=== PATIENT | male | born 1990 | race Caucasian/White ===

== ENCOUNTER 2018-01-11 15:53 | Inpatient (IN) | payer MEDICAID ==
[~2018-01-11] VITALS: Ht 177.8 cm; Wt 77.5 kg
[~2018-01-11 15:53] MED LIST: BENZ1TAB10 PO; FLUO-191 PO
[2018-01-11] MEDS ORDERED: ZOLPIDEM TARTRATE 10 MG TABLET PO PRN (17:30)
[2018-01-11] MEDS ORDERED: PNEUMOCOCCAL VACCINE POLYVALENT 0.5 ML VIAL [PPSV23] IM ONE (18:15)
[2018-01-11 18:24] VITALS: BP 128/77
[2018-01-11] MEDS: HALOPERIDOL 5 MG TABLET PO PRN (18:44)
[2018-01-11] MEDS: LORazepam 2 MG TABLET PO PRN (18:44)
[2018-01-11 19:16] VITALS: BP 125/79
[2018-01-11] MEDS ORDERED: CloNIDine HCL 0.1 MG TABLET PO PRN (21:30)
[2018-01-11] MEDS ORDERED: ACETAMINOPHEN 325 MG TABLET PO PRN (21:30)
[2018-01-11] MEDS ORDERED: ALBUTEROL SULFATE HFA 90 MCG/PUFF 8 GM INHALER IH PRN (21:30)
[2018-01-11] MEDS ORDERED: NICOTINE 14 MG/24 HOUR PATCH TD PRN (21:30)
[2018-01-11] MEDS ORDERED: ONDANSETRON HCL 4 MG TABLET PO PRN (21:30)
[2018-01-11] MEDS ORDERED: DOCUSATE SODIUM 100 MG CAPSULE PO PRN (21:30)
[2018-01-11] MEDS ORDERED: LOPERAMIDE HCL 2 MG CAPSULE PO PRN (21:30)
[2018-01-11] MEDS ORDERED: MAGNESIUM HYDROXIDE SUSPENSION 30 ML UDCUP PO PRN (21:30)
[2018-01-11] MEDS ORDERED: PETROLATUM,WHITE 71 GM JELLY TP PRN (21:30)
[2018-01-11] MEDS ORDERED: GuaiFENesin/D-METHORPHAN [SUGAR-FREE] 200-20MG/10 ML SYRUP UDCUP PO PRN (21:30)
[2018-01-11] MEDS ORDERED: IBUPROFEN 400 MG TABLET PO PRN (21:30)
[2018-01-11] MEDS ORDERED: MAG HYDROX/AL HYDROX/SIMETH ES 30 ML SUSPENSION UDCUP PO PRN (21:30)
[2018-01-12 06:39] VITALS: BP 115/62
[2018-01-12 08:05] VITALS: BP 119/67
[2018-01-12 08:12] LABS: BASOPHILS % (AUTO) 0.6 % (0.0-2.0); EOSINOPHILS % (AUTO) 0.9 % (1.0-6.0); HEMATOCRIT 49.7 % (41-53); HEMOGLOBIN 16.9 g/dL (13.5-17.5); LYMPHOCYTES # (AUTO) 1.7 K/uL (1.0-4.8); LYMPHOCYTES % (AUTO) 26.2 % (22.0-44.0); MEAN CORPUSCULAR HEMOGLOBIN 30.5 pg (26.0-34.0); MEAN CORPUSCULAR HGB CONC 33.9 G/dL (31.0-37.0); MEAN CORPUSCULAR VOLUME 90 fL (80-100); MONOCYTES # (AUTO) 0.5 K/uL (0.1-1.0); MONOCYTES % (AUTO) 7.9 % (2.0-9.0); NEUTROPHILS # (AUTO) 4.3 K/uL (1.8-7.7); NEUTROPHILS % (AUTO) 64.4 % (40.0-70.0); PLATELET COUNT (AUTO) 214 K/uL (150-450); RED BLOOD CELL COUNT(AUTO) 5.54 MIL/uL (4.50-5.90); RED CELL DISTRIBUTION WIDTH 13.5 % (11.5-14.5)
[2018-01-12 08:45] LABS: HEMOGLOBIN A1C 5.1 % (4.5-6.2)
[2018-01-12 09:01] LABS: ALANINE AMINOTRANSFERASE 24 U/L (12-78); ALBUMIN 3.6 g/dL (3.4-5.0); ALKALINE PHOSPHATASE 72 U/L (46-116); ANION GAP 2 mmol/L (8-16); ASPARTATE AMINOTRANSFERASE 17 U/L (15-37); BILIRUBIN,TOTAL 0.5 mg/dL (0.1-1.0); CALCIUM, TOTAL 8.6 mg/dL (8.8-10.5); CARBON DIOXIDE 33 mmol/L (22-29); CHLORIDE 102 mmol/L (98-107); CHOL/HDL RATIO 2.7 (4.2-7.3); CHOLESTEROL 142 mg/dL (131-200); CREATININE 0.94 mg/dL (0.60-1.30); FREE T4 (FREE THYROXINE) 0.61 ng/dL (0.76-1.46); GLOMERULAR FILTR. RATE CALC > 60 mL/min (>60); GLUCOSE,RANDOM 78 mg/dL (70-110); HDL CHOLESTEROL 53 mg/dL (40-60); LDL CHOL (CALC.) 77 mg/dL (0-130); SODIUM SERUM 137 mmol/L (136-145); THYROID STIMULATING HORMONE 1.05 uIU/mL (0.36-3.74); TOTAL PROTEIN, SERUM 7.5 g/dL (6.4-8.2); TRIGLYCERIDES 61 mg/dL (15-150); UREA NITROGEN, BLOOD 15 mg/dL (7-18)
[2018-01-12] MEDS: RisperiDONE 2 MG TABLET PO SCH ×2 (10:17→17:07)
[2018-01-12] MEDS: BENZTROPINE MESYLATE 1 MG TABLET PO SCH ×2 (10:17→17:08)
[2018-01-12] MEDS: FLUoxetine HCL 20 MG CAPSULE PO SCH (10:17)
[2018-01-12 16:00] VITALS: BP 112/64
[2018-01-12] MEDS: LORazepam 2 MG TABLET PO PRN (17:08)
[2018-01-12] MEDS: HALOPERIDOL 5 MG TABLET PO PRN (17:08)
[2018-01-13 05:53] VITALS: BP 110/62
[2018-01-13 08:01] VITALS: BP 124/62
[2018-01-13] MEDS: FLUoxetine HCL 20 MG CAPSULE PO SCH (09:03)
[2018-01-13] MEDS: RisperiDONE 2 MG TABLET PO SCH (09:03)
[2018-01-13] MEDS: BENZTROPINE MESYLATE 1 MG TABLET PO SCH (09:03)
[2018-01-13] MEDS ORDERED: RISP2 PO (13:06)
== END 2018-01-13 14:45 | disposition home or self-care (01) | DRG 750 ==
LOC: B2S 17:17 → B3A 17:18
PROVIDERS: ADMIT Psychiatry & Neurology Child & Adolescent Psychiatry; ATTEND Psychiatry & Neurology Child & Adolescent Psychiatry
DX: F20.9 Schizophrenia, unspecified (principal); F19.10 Other psychoactive substance abuse, uncomplicated; F41.9 Anxiety disorder, unspecified; G47.00 Insomnia, unspecified; Z28.21 Immunization not carried out because of patient refusal
CPT/HCPCS: 83036; 84439; 84443; 90686